=== PATIENT | female | born 2000 | race African-American/Black ===

== ENCOUNTER 2021-09-22 14:34 | Emergency (ER) | payer OTHER, SELFPAY ==
[~2021-09-22] VITALS: Ht 147.3 cm; Wt 61.6 kg
[2021-09-22 14:35] VITALS: BP 127/64
[2021-09-22] MEDS ORDERED: KETOROLAC 30 MG/ML 1ML VIAL IM ONE (16:20)
[2021-09-22] MEDS ORDERED: BACITRACIN OINTMENT 30GM TUBE TOP ONE (16:20)
== END 2021-09-22 17:01 | disposition home or self-care (01) ==
LOC: M ED 14:34
DX: T23.032A Burn of unspecified degree of multiple left fingers (nail), not including thumb, initial encounter (principal); X15.0XXA Contact with hot stove (kitchen), initial encounter; Y92.9 Unspecified place or not applicable; Y93.9 Activity, unspecified; Y99.9 Unspecified external cause status; T31.0 Burns involving less than 10% of body surface
CPT/HCPCS: 96372; 99283; J1885

== ENCOUNTER 2021-10-17 16:47 | Emergency (ER) | payer OTHER ==
[~2021-10-17] VITALS: Ht 147.3 cm; Wt 61.4 kg
[2021-10-17] MEDS ORDERED: ACETAMINOPHEN 500 MG TAB PO ONE (19:00)
[2021-10-17 21:21] LABS: GC DNA AMPLIFICATION NEGATIVE (NEGATIVE)
[2021-10-17 21:23] VITALS: BP 118/55
== END 2021-10-17 21:34 | disposition left against medical advice (07) ==
LOC: M ED 16:47
DX: Z53.21 Procedure and treatment not carried out due to patient leaving prior to being seen by health care provider (principal)

== ENCOUNTER → 2021-10-21 | Outpatient (CLI) | payer OTHER | LOC: M RAD 16:11 | PROVIDERS: ATTEND Nurse Practitioner Family | DX: M25.561 Pain in right knee (principal) ==

== ENCOUNTER → 2021-12-10 | Outpatient (REF) | payer OTHER | LOC: M LAB REF 16:27 | PROVIDERS: ATTEND Nurse Practitioner Family | DX: R10.9 Unspecified abdominal pain (principal) ==

== ENCOUNTER → 2022-01-09 | Outpatient (REF) | payer OTHER ==
[2022-01-09 17:25] LABS: HCG, SERUM QUALITATIVE NEGATIVE (NEGATIVE)
[2022-01-09 17:40] LABS: PROLACTIN 4.3 NG/ML
== END ==
LOC: M LAB REF 16:16
PROVIDERS: ATTEND Nurse Practitioner Family
DX: N64.3 Galactorrhea not associated with childbirth (principal)

== ENCOUNTER → 2022-02-21 | Outpatient (CLI) | payer OTHER, SELFPAY | LOC: M WHC 12:00 | PROVIDERS: ATTEND Nurse Practitioner Family | DX: N92.6 Irregular menstruation, unspecified (principal); N64.4 Mastodynia; R10.9 Unspecified abdominal pain ==

== ENCOUNTER → 2022-08-07 | Outpatient (CLI) | payer OTHER | LOC: M SOG 08:39 | PROVIDERS: ATTEND Physician Assistant | DX: M79.641 Pain in right hand (principal) ==

== ENCOUNTER 2022-09-23 01:03 | Inpatient (IN) | payer OTHER ==
[~2022-09-23] VITALS: Ht 147.3 cm; Wt 49.5 kg
[2022-09-23] MEDS ORDERED: HOME MED LIST COMPLETE! XX SCH (08:10)
[2022-09-23 08:24] LABS: HEMATOCRIT 36.8 % (36.0-47.0); MEAN CORPUSCULAR HEMOGLOBIN 28.8 pg (27.0-33.0); MEAN CORPUSCULAR HGB CONC 32.6 g/dl (32.0-36.5); MEAN CORPUSCULAR VOLUME 88.2 fl (80.0-96.0); PLATELET COUNT, AUTOMATED 200 10^3/uL (150-450); RED BLOOD COUNT 4.17 10^6/uL (4.00-5.40); WHITE BLOOD COUNT 7.6 10^3/uL (4.0-10.0)
[2022-09-23 08:51] LABS: ETHYL ALCOHOL (ETHANOL) 0.005 % (0.000-0.010)
[2022-09-23 08:52] LABS: ACETAMINOPHEN LEVEL < 2.0 UG/ML (10.0-20.0); ALBUMIN 4.1 G/DL (3.2-5.2); ALKALINE PHOSPHATASE 64 U/L (46-116); ALT/SGPT 17 U/L (7.0-40); AST/SGOT 22 U/L (<34); BILIRUBIN,DIRECT 0.3 MG/DL (<0.4); BILIRUBIN,TOTAL 0.7 MG/DL (0.3-1.2); BLOOD UREA NITROGEN 12 MG/DL (9-23); CALCIUM LEVEL 9.1 MG/DL (8.5-10.1); CARBON DIOXIDE LEVEL 26 MMOL/L (20-31); CHLORIDE LEVEL 105 MMOL/L (98-107); GLOMERULAR FILTRATION RATE > 60.0 (>60); GLUCOSE, FASTING 97 MG/DL (60-100); POTASSIUM SERUM 3.2 MMOL/L (3.5-5.1); SALICYLATE LEVEL < 3.0 MG/DL (<30); SODIUM LEVEL 137 MMOL/L (136-145); TOTAL PROTEIN 6.9 G/DL (5.7-8.2)
[2022-09-23 08:54] LABS: THYROID STIMULATING HORMONE 1.044 uIU/ML (0.55-4.78)
[2022-09-23] MEDS: NICOTINE 21MG/24HR 1 EA TRANSDERMAL TD SCH (09:00)
[2022-09-23 09:03] LABS: HCG, SERUM QUALITATIVE NEGATIVE (NEGATIVE)
[2022-09-23] MEDS ORDERED: POTASSIUM CHLORIDE 10MEQ SR TABLET PO ONE (09:05)
[2022-09-23 09:12] LABS: AMPHETAMINES LEVEL URINE NEGATIVE (NEGATIVE); BARBITURATES URINE NEGATIVE (NEGATIVE); BENZODIAZEPINES URINE NEGATIVE (NEGATIVE); COCAINE METABOLITE URINE NEGATIVE (NEGATIVE); METHADONE URINE NEGATIVE (NEGATIVE); OPIATES URINE NEGATIVE (NEGATIVE); PHENCYCLIDINE URINE NEGATIVE (NEGATIVE)
[2022-09-23 09:16] LABS: CANNABINOIDS URINE POSITIVE (NEGATIVE)
[2022-09-23] MEDS ORDERED: ACETAMINOPHEN TAB 650MG DOSE (2X325MG) PO PRN (13:05)
[2022-09-23] MEDS ORDERED: MAALOX 30 ML SUSP *UDC PO PRN (13:05)
[2022-09-23] MEDS ORDERED: MOM 30ML SUSPENSION UDC PO PRN (13:05)
[2022-09-23] MEDS ORDERED: diphenhydrAMINE 25MG CAP PO PRN (13:05)
[2022-09-23 23:17] VITALS: BP 114/71
[2022-09-23] MEDS: traZODone 50 MG TAB PO PRN (23:25)
[2022-09-23] MEDS: IBUPROFEN 400MG TAB PO PRN (23:26)
[2022-09-24 06:36] VITALS: BP 112/61
[2022-09-24] MEDS: NICOTINE 21MG/24HR 1 EA TRANSDERMAL TD SCH (09:00)
[2022-09-24] MEDS: IBUPROFEN 400MG TAB PO PRN (09:26)
[2022-09-24 16:19] VITALS: BP 121/66
[2022-09-24] MEDS: OLANZapine 5 MG TAB PO SCH (21:00)
[2022-09-24] MEDS: traZODone 50 MG TAB PO PRN (22:11)
[2022-09-25 05:41] VITALS: BP 108/58
[2022-09-25] MEDS: NICOTINE 21MG/24HR 1 EA TRANSDERMAL TD SCH (09:00)
[2022-09-25] MEDS: OLANZapine ORAL DISINTEGRATING TAB 5MG PO PRN (15:54)
[2022-09-25 18:08] VITALS: BP 114/68
[2022-09-25] MEDS: OLANZapine 5 MG TAB PO SCH (21:00)
[2022-09-26] MEDS: traZODone 50 MG TAB PO PRN (00:15)
[2022-09-26 07:07] VITALS: BP 104/56
[2022-09-26] MEDS: NICOTINE 21MG/24HR 1 EA TRANSDERMAL TD SCH (09:00)
[2022-09-26] MEDS ORDERED: TRAZ-252 PO (11:09)
[2022-09-26] MEDS: OLANZapine ORAL DISINTEGRATING TAB 5MG PO PRN (11:12)
== END 2022-09-26 15:10 | disposition home or self-care (01) | DRG 753 ==
LOC: EDBD 01:03 → M ED 01:03 → M ED INP 13:04 → M PSY 22:31
PROVIDERS: ADMIT Student in an Organized Health Care Education/Training Program; ATTEND Psychiatry & Neurology Psychiatry
DX: F39 Unspecified mood [affective] disorder (principal); F12.10 Cannabis abuse, uncomplicated; E87.6 Hypokalemia; F17.200 Nicotine dependence, unspecified, uncomplicated; Z91.410 Personal history of adult physical and sexual abuse; Z63.8 Other specified problems related to primary support group; Z20.822 Contact with and (suspected) exposure to COVID-19; Z88.8 Allergy status to other drugs, medicaments and biological substances

== ENCOUNTER 2023-06-13 21:58 | Emergency (ER) | payer MEDICAID, OTHER ==
[~2023-06-13 21:58] MED LIST: TRAZ-252 PO
[2023-06-13 22:14] VITALS: BP 157/89; TEMP 98; O2SAT 98
[2023-06-13] MEDS ORDERED: BOOSTRIX VACCINE (TETANUS/DIPHTH/ACEL. PERTUSSIS) 0.5ML SYR IM ONE (23:30)
[2023-06-14] MEDS ORDERED: LIDOCAINE 2% MDV 20ML VIAL SC ONE (00:10)
== END 2023-06-14 01:20 | disposition home or self-care (01) ==
LOC: M ED 21:58 → EDBD 21:58 → M ED 06-14 01:20
DX: S81.811A Laceration without foreign body, right lower leg, initial encounter (principal); Y92.019 Unspecified place in single-family (private) house as the place of occurrence of the external cause; Y93.9 Activity, unspecified; Y99.9 Unspecified external cause status; W22.8XXA Striking against or struck by other objects, initial encounter; Z23 Encounter for immunization; F10.10 Alcohol abuse, uncomplicated; Z88.8 Allergy status to other drugs, medicaments and biological substances; Z79.899 Other long term (current) drug therapy

== ENCOUNTER → 2023-08-20 | Outpatient (CLI) | payer OTHER | LOC: M OUTALCOH 08:36 | PROVIDERS: ATTEND Psychiatry & Neurology Psychiatry | DX: F12.20 Cannabis dependence, uncomplicated (principal); F17.200 Nicotine dependence, unspecified, uncomplicated ==

== ENCOUNTER → 2023-09-15 | Outpatient (RCR) | payer OTHER | LOC: M OUTALCOH 08-27 08:29 | PROVIDERS: ATTEND Psychiatry & Neurology Psychiatry | DX: F12.20 Cannabis dependence, uncomplicated (principal); F17.200 Nicotine dependence, unspecified, uncomplicated ==

== ENCOUNTER → 2023-09-24 | Outpatient (REF) | payer OTHER ==
[2023-09-24 18:35] LABS: Trichomonas vaginalis (AMP) NOT DETECTED (NEGATIVE)
[2023-09-24 18:58] LABS: GC DNA AMPLIFICATION NEGATIVE (NEGATIVE)
== END ==
LOC: M LAB REF 16:16
PROVIDERS: ATTEND Nurse Practitioner Family
DX: Z11.3 Encounter for screening for infections with a predominantly sexual mode of transmission (principal)

== ENCOUNTER 2023-11-12 09:00 | Outpatient (RCR) | payer OTHER | END 2023-11-15 | LOC: M OUTALCOH 09:00 | PROVIDERS: ATTEND Psychiatry & Neurology Psychiatry | DX: F12.20 Cannabis dependence, uncomplicated (principal); F17.200 Nicotine dependence, unspecified, uncomplicated ==

== ENCOUNTER → 2023-12-16 | Outpatient (RCR) | payer OTHER | LOC: M OUTALCOH 11-23 16:00 | PROVIDERS: ATTEND Psychiatry & Neurology Psychiatry | DX: F12.20 Cannabis dependence, uncomplicated (principal); F17.200 Nicotine dependence, unspecified, uncomplicated ==

== ENCOUNTER 2024-01-14 08:24 | Outpatient (RCR) | payer OTHER | END 2024-01-16 | LOC: M OUTALCOH 08:24 | PROVIDERS: ATTEND Psychiatry & Neurology Psychiatry | DX: F12.20 Cannabis dependence, uncomplicated (principal); F17.200 Nicotine dependence, unspecified, uncomplicated ==

== ENCOUNTER 2024-02-04 08:17 | Outpatient (RCR) | payer OTHER | END 2024-02-15 | LOC: M OUTALCOH 08:17 | PROVIDERS: ATTEND Psychiatry & Neurology Psychiatry | DX: F12.20 Cannabis dependence, uncomplicated (principal); F17.200 Nicotine dependence, unspecified, uncomplicated ==

== ENCOUNTER 2024-03-03 09:53 | Outpatient (RCR) | payer OTHER | END 2024-03-17 | LOC: M OUTALCOH 09:53 | PROVIDERS: ATTEND Psychiatry & Neurology Psychiatry | DX: F12.20 Cannabis dependence, uncomplicated (principal); F17.200 Nicotine dependence, unspecified, uncomplicated ==

== ENCOUNTER → 2024-12-05 | Outpatient (REF) | payer OTHER | LOC: M LAB REF 16:40 | PROVIDERS: ATTEND Student in an Organized Health Care Education/Training Program | DX: R22.33 Localized swelling, mass and lump, upper limb, bilateral (principal) ==

== ENCOUNTER 2025-02-08 10:42 | Emergency (ER) | payer OTHER ==
[~2025-02-08] VITALS: Ht 147.3 cm; Wt 66.1 kg
[2025-02-08 12:28] LABS: KETONE, URINE AUTO RFX NEGATIVE (NEGATIVE); LEUKOCYTE ESTERASE UR AUTO RFX NEGATIVE (NEGATIVE); MUCUS, URINE RFX SMALL (NEGATIVE); NITRITE, URINE AUTO RFX NEGATIVE (NEGATIVE); RBC, URINE AUTO RFX 2 /HPF (0-3); SQUAM EPITHELIAL CELL UR AURFX 8 /HPF (0-6); WBC, URINE AUTO RFX 1 /HPF (0-3)
[2025-02-08 12:56] LABS: BASO # 0.0 10^3/uL (0.0-0.2); BASO % 0.3 % (0.0-1.0); EOS # 0.1 10^3/uL (0.0-0.5); EOS % 0.9 % (0.0-3.0); LYMPH # 3.8 10^3/uL (1.5-5.0); LYMPH % 42.4 % (24.0-44.0); MONO # 0.4 10^3/uL (0.0-0.8); MONO % 4.8 % (2.0-8.0); NEUTROPHILS # 4.6 10^3/uL (1.5-8.5); NEUTROPHILS % 51.3 % (36.0-66.0); PLATELET COUNT, AUTOMATED 216 10^3/uL (150-450)
[2025-02-08 13:57] VITALS: BP 105/66; TEMP 98.9; O2SAT 99
[2025-02-08 14:05] LABS: HCG, SERUM QUANTITATIVE < 2.6 MIU/ML (<4.2)
[2025-02-08 14:07] LABS: ALT/SGPT 21 U/L (7.0-40); AST/SGOT 21 U/L (<34); CALCIUM LEVEL 8.7 MG/DL (8.5-10.1); CARBON DIOXIDE LEVEL 27 MMOL/L (20-31); CHLORIDE LEVEL 107 MMOL/L (98-107); CREATININE FOR GFR 0.72 MG/DL (0.55-1.30); GLOMERULAR FILTRATION RATE > 90.0 (>60); POTASSIUM SERUM 4.3 MMOL/L (3.5-5.1); SODIUM LEVEL 138 MMOL/L (136-145)
== END 2025-02-08 16:11 | disposition home or self-care (01) ==
LOC: M ED 10:42
DX: Z32.02 Encounter for pregnancy test, result negative (principal); F17.210 Nicotine dependence, cigarettes, uncomplicated; F12.10 Cannabis abuse, uncomplicated; F10.10 Alcohol abuse, uncomplicated; Z88.8 Allergy status to other drugs, medicaments and biological substances

== ENCOUNTER 2025-05-17 13:43 | Emergency (ER) | payer OTHER ==
[~2025-05-17] VITALS: Ht 147.3 cm; Wt 62.6 kg
[2025-05-17] MEDS ORDERED: ACETAMINOPHEN 500 MG TAB PO ONE (19:55)
[2025-05-17] MEDS ORDERED: LIDOCAINE 5% PATCH TD ONE (19:55)
[2025-05-17] MEDS ORDERED: CYCL5TAB4 PO (21:01)
[2025-05-17] MEDS ORDERED: MEDR4PAK PO (21:01)
[2025-05-17 21:06] VITALS: BP 116/72; TEMP 98; O2SAT 98
== END 2025-05-17 21:10 | disposition home or self-care (01) ==
LOC: M ED 13:43
DX: M54.50 Low back pain, unspecified (principal); Z88.8 Allergy status to other drugs, medicaments and biological substances; Z79.899 Other long term (current) drug therapy